=== PATIENT | male | born 1970 | race Caucasian/White ===

== ENCOUNTER 2018-05-29 06:39 | Observation (INO) ==
[2018-05-29] MEDS ORDERED: Morphine Inj 4 MG/ML Vial IV.PUSH PRN (11:32)
[2018-05-29] MEDS ORDERED: Acetaminophen 500 MG Tablet PO PRN (11:32)
[2018-05-29] MEDS ORDERED: Temazepam 15 MG Capsule PO PRN (11:32)
--- NOTE | 2018-05-29 14:27 | P.HP ---
History of Present Illness Primary Care Physician: Rodney Estrada DO Chief Complaint: Chest burning History of Present Illness: 48-year-old male with known history of esophagitis, gastroesophageal reflux who presented to the emergency department for evaluation of chest burning. Patient states that he suffers from heartburn and reflux all the time. He takes Zantac roughly 300 mg twice daily which usually manages his discomfort. Patient states that he has undergone endoscopy within the last year which he was told that he had an ulcer in his lower esophagus. As well as something precancerous in the colonoscopy. He was treated for 3 months with medications and was told that he should be healed. However he still has been suffering with heartburn, chest discomfort. He was told that it is almost time for him to go back for his recheck in have a scope reperformed. Prior to having his procedure done he underwent a cardiac stress test for cardiac clearance. That was negative at that time. Patient states that he was normal state of health with his constant epigastric burning and discomfort till last night when he went to sleep he started developing the burning up underneath his chest area when he laid flat on his back he did not have any abnormality or any discomfort. Whenever he rolled onto his side he would get a burning sensation. He woke up and took Zantac, it did not help this time usually it resolves his discomfort within 30 minutes. However did not at this time. He states that when he bent over in order to put on his shoes the pain was more severe in his epigastric region. He states that throughout the night he felt hot. He denied any nausea, vomiting, diaphoresis, shortness of breath, dyspnea. Patient had workup done emergency department is recommended by the ER physician the patient be observed for rule out any underlying ischemia for his chest pain. - Diagnosis (1) Chest pain, rule out acute myocardial infarction Review of Systems All other systems reviewed negative except as stated in HPI Cardiovascular: Reports chest pain Gastrointestinal: Reports abdominal pain PMFSH - History History Provided By: Patient - Medical History Medical History: Medical History (Last Reviewed 05/29/18 @ 14:21 by PHIL Burns) GERD (gastroesophageal reflux disease) - Surgical History Surgical History: Surgical History (Last Reviewed 05/29/18 @ 14:21 by PHIL Burns) Hx of appendectomy - Family History Family History: Family History (Last Updated 05/29/18 @ 14:21 by PHIL Burns) Other No pertinent family history - Tobacco History Second Hand Smoke Exposure: Yes Smoking Status: Heavy tobacco smoker Tobacco Type: Cigarettes - Alcohol History How Often Do You Have a Drink Containing Alcohol: 2 to 4 times a month - Substance Use History Substance History: No History of Abuse Medications and Allergies Active Medications: Active Medications Acetaminophen (Tylenol) 500 mg PO Q4H PRN PRN Reason: HEADACHE Hydrocodone Bitart/Acetaminophen ([place] 7.5/325) 1 tab PO Q4H PRN PRN Reason: PAIN SCALE 1 TO 7 Morphine Sulfate (Morphine Inj) 2 mg IV.PUSH Q4H PRN PRN Reason: PAIN SCALE 8 TO 10 Nitroglycerin (Nitrostat Sl) 0.4 mg SL Q5M PRN PRN Reason: CHEST PAIN Ondansetron HCl (Zofran Inj) 4 mg IV.PUSH Q6H PRN PRN Reason: NAUSEA Sodium Chloride (Ns Flush) 2 ml IV.FLUSH BID KASSI Sodium Chloride (Ns Flush) 2 ml IV.FLUSH PRN PRN PRN Reason: FLUSH AFTER USING IV ACCESS Temazepam (Restoril) 15 mg PO HS PRN PRN Reason: INSOMNIA Allergies Allergy/AdvReac Type Severity Reaction Status Date / Time Penicillins Allergy Vomiting Verified 05/29/18 06:57 Home Medications Medication Instructions Recorded Confirmed Type ranitidine HCl [Zantac Maximum 150 mg PO BID 05/29/18 05/29/18 History Strength] Exam Narrative: GENERAL: Well-developed, well-nourished, in no acute distress. alert and orientated HEENT: Head is normocephalic without any lesions or masses noted. Facial features are symmetric. Eyes: Pupils equal round reactive to light. Extraocular muscles are intact. Conjunctivae were clear. Oropharyngeal: Pharynx without any erythema edema. Tongue is midline without deviation. Buccal mucosa is moist without any masses or lesions NECK: Supple without any masses. Trachea midline no deviation. No JVD, no bruits are appreciated CARDIAC: Regular rhythm, regular rate. S1/S2 are heard. No murmurs gallops or rubs. LUNGS: Clear to auscultation bilaterally. No wheeze, rhonchi or rales. No use of accessory muscles on inspiration or expiration. ABDOMEN: Soft, nontender. Nondistended. Bowel sounds heard in all 4 quadrants. No organomegaly or masses. Negative rebound, negative guarding EXTREMITIES: No edema, pulses are equal bilaterally. No cyanosis or clubbing NEUROLOGY: Mood and affect appear appropriate. Cranial nerves II through XII grossly intact. Muscle strength 5/5 in upper and lower extremities bilaterally. Deep tendon reflexes are 2+ in upper and lower extremities bilaterally. Caprini VTE Risk Assessment Caprini VTE Risk Assessment: No/Low Risk (score <= 1) Caprini Risk Assessment Model: Point Value = 1 Point Value = 2 Point Value = 3 Point Value = 5 Age 41-60 Minor surgery BMI > 25 kg/m2 Swollen legs Varicose veins or History of unexplained or recurrent spontaneous Oral contraceptives or hormone replacement Sepsis (< 1 month) Serious lung disease, including pneumonia (< 1 month) Abnormal pulmonary function Acute myocardial infarction Congestive heart failure (< 1 month) History of inflammatory bowel disease Medical patient at bed rest Age 61-74 Arthroscopic surgery Major open surgery (> 45 min) Laparoscopic surgery (> 45 min) Malignancy Confined to bed (> 72 hours) Immobilizing plaster cast Central venous access Age >= 75 History of VTE Family history of VTE Factor V Leiden Prothrombin [id number] Lupus anticoagulant Anticardiolipin antibodies Elevated serum homocysteine Heparin-induced thrombocytopenia Other congenital or acquired thrombophilia Stroke (< 1 month) Elective arthroplasty Hip, pelvis, or leg fracture Acute spinal cord injury (< 1 month) Prophylaxis Regimen: Total Risk Factor Score Risk Level Prophylaxis Regimen 0-1 Low Early ambulation 2 Moderate Order ONE of the following: *Sequential Compression Device (SCD) *Heparin 5000 units SQ BID 3-4 Higher Order ONE of the following medications: *Heparin 5000 units SQ TID *Enoxaparin/Lovenox 40 mg SQ daily (WT < 150 kg, CrCl > 30 mL/min) *Enoxaparin/Lovenox 30 mg SQ daily (WT < 150 kg, CrCl > 10-29 mL/min) *Enoxaparin/Lovenox 30 mg SQ BID (WT < 150 kg, CrCl > 30 mL/min) AND/OR *Sequential Compression Device (SCD) 5 or more Highest Order ONE of the following medications: *Heparin 5000 units SQ TID (Preferred with Epidurals) *Enoxaparin/Lovenox 40 mg SQ daily (WT < 150 kg, CrCl > 30 mL/min) *Enoxaparin/Lovenox 30 mg SQ daily (WT < 150 kg, CrCl > 10-29 mL/min) *Enoxaparin/Lovenox 30 mg SQ BID (WT < 150 kg, CrCl > 30 mL/min) AND *Sequential Compression Device (SCD) Assessment and Plan - Assessment (1) Chest pain, rule out acute myocardial infarction Code(s): R07.9 - Chest pain, unspecified Status: Acute - Plan Chest pain, atypical -Presenting symptoms and exam definitely indicate possible GI etiology. -Patient only risk factor of cardiovascular disease is chronic smoker -Patient has been ruled out for acute coronary event with serial cardiac enzymes that are negative, serial EKGs show sinus rhythm without any changes -I contacted the patient's reconstructive surgeon and obtain his most recent exercise stress test which was done in July 2017. At that time patient was negative for any ischemia. -Given the patient had been ruled out for acute coronary event with serial cardiac enzymes, EKGs and patient has had a negative stress test within the last 12 months. No further workup for any ischemia will be done at this time. Patient's discomfort is apparently GI in nature. Gastroesophageal reflux with dyspepsia -Start Protonix 40 mg daily -Start Carafate -Patient was instructed to follow-up with his console operator since he is due for repeat endoscopy. -We will discharge the patient on Protonix and Carafate Chronic tobacco use -Counseled patient on cessation notified him that his tobacco use will cause worsening of his reflux, ulcer disease. DVT prevention -Sequential compression devices Discharge Planning: Discharge home in stable condition Activity: Ad lenin. Diet: Regular diet Medication per medication reconciliation Follow-up with primary medical doctor in 1 week
[2018-05-29] MEDS ORDERED: Sucralfate 1 GM Tablet PO SCH (17:00)
== END 2018-05-29 16:03 | disposition home or self-care (01) ==
LOC: NEDDLT 06:39 → PH3 06:39
PROVIDERS: ADMIT Hospitalist; ATTEND Hospitalist